=== PATIENT | female | born 1975 | race Caucasian/White ===

== ENCOUNTER 2017-04-05 13:03 | Emergency (ER) | payer MEDICAID ==
[~2017-04-05] VITALS: Ht 157.5 cm; Wt 124.0 kg
[2017-04-05 15:25] VITALS: BP 118/76
== END 2017-04-05 14:27 | disposition home or self-care (01) ==
LOC: ED 13:03
DX: M54.5 Low back pain (principal); R10.9 Unspecified abdominal pain
CPT/HCPCS: J1885; Q0092

== ENCOUNTER 2017-08-18 02:30 | Emergency (ER) | payer OTHER ==
[2017-08-18 02:35] VITALS: BP 120/70
== END 2017-08-18 04:45 | disposition left against medical advice (07) ==
LOC: ED 02:30
DX: Z53.21 Procedure and treatment not carried out due to patient leaving prior to being seen by health care provider (principal)

== ENCOUNTER 2018-05-12 06:57 | Emergency (ER) | payer OTHER ==
[~2018-05-12] VITALS: Ht 157.5 cm; Wt 127.0 kg
[2018-05-12 07:11] VITALS: Ht 157.5 cm; Wt 127.0 kg
[2018-05-12 07:54] LABS: UA SPECIFIC GRAVITY 1.025 (1.005-1.035); microscopic required? YES; urine erythrocyte 1+ (NEGATIVE)
[2018-05-12 08:20] LABS: BASOPHIL % 0.4 % (0-2); PLATELET COUNT 322 x10^3mcL (130-400); RED CELL DISTRIBUTION WIDTH 14.3 % (11.5-14.5)
[2018-05-12 09:14] LABS: CALCIUM 9.1 mg/dL (8.5-10.1); CARBON DIOXIDE 23.9 mmol/L (21-32); CHLORIDE SERUM 102 mmol/L (98-107); CREATININE SERUM 0.6 mg/dL (0.6-1.0); GFR1 > 60 mL/min; GLUCOSE SERUM 136 mg/dL (74-106); POTASSIUM SERUM 3.8 mmol/L (3.5-5.1); SODIUM SERUM 134 mmol/L (136-145)
[2018-05-12 09:19] LABS: ALBUMIN 3.3 g/dL (3.4-5.0); ALKALINE PHOSPHATASE 76 U/L (46-116); ALT/SGPT 31 U/L (14-59); AST/SGOT 14 U/L (15-37)
[2018-05-12 10:15] VITALS: BP 142/73
== END 2018-05-12 10:16 | disposition home or self-care (01) ==
LOC: ED 06:57
PROVIDERS: Emergency Medicine
DX: N39.0 Urinary tract infection, site not specified (principal); Z90.49 Acquired absence of other specified parts of digestive tract
CPT/HCPCS: J0696; J1885; J7030

== ENCOUNTER 2019-10-10 12:07 | Emergency (ER) | payer SELFPAY ==
[~2019-10-10] VITALS: Ht 157.5 cm; Wt 127.9 kg
[2019-10-10 12:14] VITALS: Ht 157.5 cm; Wt 127.9 kg
[2019-10-10 13:00] LABS: BASOPHIL % 1.9 % (0-2); PLATELET COUNT 318 x10^3mcL (130-400); RED CELL DISTRIBUTION WIDTH 14.2 % (11.5-14.5)
[2019-10-10 13:10] LABS: CALCIUM 8.6 mg/dL (8.5-10.1); CHLORIDE SERUM 103 mmol/L (98-107); CREATININE SERUM 0.6 mg/dL (0.6-1.0); GFR1 > 60 mL/min; GLUCOSE SERUM 110 mg/dL (74-106); POTASSIUM SERUM 3.8 mmol/L (3.5-5.1); SODIUM SERUM 140 mmol/L (136-145)
[2019-10-10 13:15] LABS: ALKALINE PHOSPHATASE 92 U/L (46-116); ALT/SGPT 73 U/L (14-59); AMYLASE 55 U/L (25-115); AST/SGOT 33 U/L (15-37); LIPASE 279 IU/L (73-393); TOTAL PROTEIN, SERUM 8.1 g/dL (6.4-8.2)
[2019-10-10 13:16] LABS: ALBUMIN 3.2 g/dL (3.4-5.0)
[2019-10-10 14:38] VITALS: BP 126/60
== END 2019-10-10 14:38 | disposition home or self-care (01) ==
LOC: ED 12:07
PROVIDERS: Emergency Medicine
DX: K52.9 Noninfective gastroenteritis and colitis, unspecified (principal); Z90.49 Acquired absence of other specified parts of digestive tract
CPT/HCPCS: J1885; J7030